=== PATIENT | male | born 1985 | race Caucasian/White ===

== ENCOUNTER 2019-01-04 21:32 | Inpatient (IN) | payer MEDICAID ==
[~2019-01-04] VITALS: Ht 172.7 cm; Wt 103.4 kg
[2019-01-04] MEDS ORDERED: IPRATROPIUM BROMIDE (0.02%) 0.5MG/2.5ML NEB HHN STA (22:16)
[2019-01-04] MEDS ORDERED: ALBUTEROL (0.083%) 2.5MG/3ML NEB HHN STA (22:16)
[2019-01-04] MEDS ORDERED: MORPHINE SULFATE 4 MG/ML CPJ (NOT FOR IM USE) IV STA (22:16)
[2019-01-04] MEDS ORDERED: ONDANSETRON HCL 4MG/2ML INJ IV STA (22:16)
[2019-01-04] MEDS ORDERED: SODIUM CHLORIDE 0.9% 1000ML BAG (SEPSIS BOLUS) IV ONE (22:30)
[2019-01-04] MEDS ORDERED: CEFTRIAXONE 1 G PREMIX 50 ML IV ONE (22:30)
[2019-01-04 22:46] LABS: BG BASE EXCESS -3.3 mmol/L (-2.0-2.0); BG CARBOXYHEMOGLOBIN 0.7 % (0.5-1.5); BG DEOXYHEMOGLOBIN 8.2 % (0.0-5.0); BG FRACTION INSPIRED OXYGEN 21; BG HCO3 ACT 21.2 mmol/L (22.0-26.0); BG METHEMOGLOBIN 0.3 % (0.0-1.5); BG OXYGEN SATURATION 91.7 % (92.0-98.5); BG OXYHEMOGLOBIN 90.8 % (94.0-97.0); BG PCO2 36.6 mmHg (35.0-45.0); BG PO2 59.3 mmHg (75.0-100.0); BG SAMPLE SITE RIGHT RADIAL; BG TOTAL HEMOGLOBIN 16.8 g/dL (12.0-18.0); BG VENT MODE ROOM AIR
[2019-01-04 22:49] LABS: CHLORIDE 105 mEq/L (98-107)
[2019-01-04 22:50] LABS: BASOPHILS % 0.3 % (0.0-2.0); EOSINOPHILS % 7.2 % (0.0-5.0); HEMATOCRIT. 47.9 % (42.0-52.0); HEMOGLOBIN. 16.7 g/dL (14.0-18.0); LYMPHOCYTES % 9.2 % (20.0-50.0); MEAN CORPUSCULAR HEMOGLOBIN 31.4 pg (28.0-32.0); MEAN PLATELET VOLUME 9.7 fl (7.4-10.4); MONOCYTES % 7.4 % (2.0-8.0); NEUTROPHILS % 75.9 % (40.0-76.0); PLATELET 246 x1000/uL (130-400); RED BLOOD CELL COUNT 5.32 mill/uL (4.7-6.1); RED CELL DISTRIBUTION WIDTH 13.2 % (11.6-14.6)
[2019-01-04 22:51] LABS: PROTHROMBIN TIME 10.6 sec (9.6-11.0)
[2019-01-05] VITALS (8 sets, daily range): BP systolic 120–145; BP diastolic 66–91
[2019-01-05] MEDS ORDERED: IOHEXOL-350 100 ML BOTTLE ONE (01:38)
[2019-01-05] MEDS ORDERED: METRONIDAZOLE 500 MG PREMIX 100 ML IV SCH (03:00)
[2019-01-05] MEDS ORDERED: LORAZEPAM 2MG/ML CPJ IV ONE (03:15)
[2019-01-05] MEDS ORDERED: ASPIRIN 325MG TABLET PO ONE (03:15)
[2019-01-05] MEDS ORDERED: METHYLPREDNISOLONE SOD SUCC 125 MG/2 ML VIAL IV ONE (03:45)
[2019-01-05 04:05] LABS: T4 FREE 0.93 ng/dL (0.76-1.46)
[2019-01-05] MEDS ORDERED: ENOXAPARIN 40MG/0.4ML SYR SUBCUT SCH (07:15)
[2019-01-05] MEDS ORDERED: DIPHENHYDRAMINE 50MG/ML VIAL IV PRN (07:15)
[2019-01-05] MEDS ORDERED: ACETAMINOPHEN 650MG SUPP PR PRN (07:15)
[2019-01-05] MEDS ORDERED: NA PHOS,M-B/NA PHOS,DI-BA ENEMA 118ML PR PRN (07:15)
[2019-01-05] MEDS ORDERED: ACETAMINOPHEN 325MG TABLET PO PRN (07:15)
[2019-01-05] MEDS ORDERED: HYDROCODONE/ACETAMINOPHEN 5/325MG TABLET PO PRN (07:15)
[2019-01-05] MEDS ORDERED: MAGNESIUM/ALUMINUM HYDROXIDE/SIMETHICONE 30ML UDC PO PRN (07:15)
[2019-01-05] MEDS ORDERED: IPRATROPIUM/ALBUTEROL 0.5-3(2.5)MG/3ML NEB INH PRN (07:15)
[2019-01-05] MEDS ORDERED: ONDANSETRON HCL 4MG/2ML INJ IV PRN (07:15)
[2019-01-05] MEDS ORDERED: ACETAMINOPHEN 650MG/20.3ML UDC GT PRN (07:15)
[2019-01-05] MEDS ORDERED: MORPHINE SULFATE 2 MG/ML CPJ (NOT FOR IM USE) IV PRN (07:15)
[2019-01-05] MEDS ORDERED: DOCUSATE SODIUM 100MG CAPSULE PO PRN (07:15)
[2019-01-05] MEDS ORDERED: CLONIDINE 0.1MG TABLET PO PRN (07:15)
[2019-01-05] MEDS ORDERED: THIAMINE HCL 100MG TABLET PO SCH (07:30)
[2019-01-05] MEDS ORDERED: FAMOTIDINE 20MG/2ML VIAL IV SCH ×2 (07:30)
[2019-01-05] MEDS: IPRATROPIUM/ALBUTEROL 0.5-3(2.5)MG/3ML NEB INH SCH ×3 (07:56→20:53)
[2019-01-05] MEDS: THIAMINE HCL 100MG TABLET PO SCH (08:46)
[2019-01-05] MEDS: METHYLPREDNISOLONE SOD SUCC 125 MG/2 ML VIAL IV SCH ×3 (08:46→21:14)
[2019-01-05 09:22] LABS: HEMATOCRIT. 48.7 % (42.0-52.0); HEMOGLOBIN. 16.4 g/dL (14.0-18.0); MEAN CORPUSCULAR HEMOGLOBIN 30.7 pg (28.0-32.0); MEAN PLATELET VOLUME 9.9 fl (7.4-10.4); PLATELET 261 x1000/uL (130-400); RED BLOOD CELL COUNT 5.35 mill/uL (4.7-6.1); RED CELL DISTRIBUTION WIDTH 13.3 % (11.6-14.6)
[2019-01-05 09:54] LABS: CHLORIDE 108 mEq/L (98-107)
[2019-01-05 10:01] LABS: ETHANOL BLOOD < 10 mg/dL
[2019-01-05] MEDS: ENOXAPARIN 30MG/0.3ML SYR SUBCUT SCH ×2 (10:40→21:16)
[2019-01-05 10:58] LABS: CLARITY URINE CLEAR (CLEAR); COLOR URINE YELLOW (YELLOW); KETONES URINE NEGATIVE (NEGATIVE); LEUKOCYTE ESTERASE URINE NEGATIVE (NEGATIVE); NITRITE URINE NEGATIVE (NEGATIVE); OCCULT BLOOD URINE NEGATIVE (NEGATIVE); PH URINE 5.5 (4.5-8.0); PROTEIN URINE TRACE (NEGATIVE); SPECIFIC GRAVITY URINE 1.035 (1.005-1.030); UROBILINOGEN URINE 0.2 E.U./dL (0.2-1.0)
[2019-01-05 11:35] LABS: *COCAINE SCREEN URINE NEGATIVE (NEGATIVE)
[2019-01-05 11:36] LABS: METHADONE URINE SCREEN NEGATIVE (NEGATIVE); OPIATES URINE SCREEN PRESUMTIVE POSITIVE (NEGATIVE)
[2019-01-05 11:37] LABS: *AMPHETAMINES SCREEN URINE NEGATIVE (NEGATIVE); *BARBITURATES SCREEN URINE NEGATIVE (NEGATIVE); *BENZODIAZEPINES SCREEN URINE NEGATIVE (NEGATIVE); CANNABINOID URINE SCREEN NEGATIVE (NEGATIVE)
[2019-01-05 12:12] LABS: PHENCYCLIDINE URINE SCREEN NEGATIVE (NEGATIVE)
[2019-01-05] MEDS: SODIUM CHLORIDE 0.9% INJ 3ML FLUSH IVF SCH ×2 (13:36→21:17)
[2019-01-05] MEDS ORDERED: CHLORDIAZEPOXIDE 25MG CAPSULE PO SCH (14:00)
[2019-01-05 14:22] LABS: PLATELET ESTIMATE NORMAL
[2019-01-05] MEDS ORDERED: SODIUM CHLORIDE 10% FOR INH 15ML VIAL NEB INH NR (15:00)
[2019-01-05 15:47] LABS: BG BASE EXCESS -0.4 mmol/L (-2.0-2.0); BG BILEVEL POS AIRWAY PRESSURE 16/5; BG CARBOXYHEMOGLOBIN 0.2 % (0.5-1.5); BG DEOXYHEMOGLOBIN 0.6 % (0.0-5.0); BG FRACTION INSPIRED OXYGEN 60; BG HCO3 ACT 24.6 mmol/L (22.0-26.0); BG METHEMOGLOBIN 0.7 % (0.0-1.5); BG OXYGEN SATURATION 99.4 % (92.0-98.5); BG OXYHEMOGLOBIN 98.5 % (94.0-97.0); BG PCO2 41.7 mmHg (35.0-45.0); BG PH 7.389 (7.350-7.450); BG PO2 228.6 mmHg (75.0-100.0); BG SAMPLE SITE RIGHT RADIAL; BG TOTAL HEMOGLOBIN 16.7 g/dL (12.0-18.0); BG VENT MODE MASK - BIPAP
[2019-01-05] MEDS: LEVOFLOXACIN 500MG PREMIX 100 ML IV SCH (16:27)
[2019-01-05 16:44] LABS: CREATINE KINASE 567 IU/L (39-308)
[2019-01-05 16:45] LABS: CREATINE KINASE MB FRACTION 5.9 ng/mL (0.5-3.6)
[2019-01-05] MEDS: METRONIDAZOLE 500 MG PREMIX 100 ML IV SCH (17:54)
[2019-01-05] MEDS: FAMOTIDINE 20MG/2ML VIAL IV SCH (21:14)
[2019-01-05 23:20] LABS: CREATINE KINASE 413 IU/L (39-308)
[2019-01-05 23:22] LABS: CREATINE KINASE MB FRACTION 4.3 ng/mL (0.5-3.6)
[2019-01-06] VITALS (12 sets, daily range): BP systolic 117–141; BP diastolic 53–78
[2019-01-06] MEDS: METRONIDAZOLE 500 MG PREMIX 100 ML IV SCH ×3 (01:32→16:15)
[2019-01-06] MEDS: METHYLPREDNISOLONE SOD SUCC 125 MG/2 ML VIAL IV SCH ×3 (01:32→13:36)
[2019-01-06] MEDS: ACETYLCYSTEINE 100MG/ML 10% VIAL 4ML INH SCH ×3 (01:36→13:42)
[2019-01-06] MEDS: IPRATROPIUM/ALBUTEROL 0.5-3(2.5)MG/3ML NEB INH SCH ×5 (01:36→21:01)
[2019-01-06] MEDS: SODIUM CHLORIDE 0.9% INJ 3ML FLUSH IVF SCH ×3 (05:54→21:04)
[2019-01-06 06:45] LABS: HEMATOCRIT. 45.7 % (42.0-52.0); HEMOGLOBIN. 15.5 g/dL (14.0-18.0); LYMPHOCYTES % 7.6 % (20.0-50.0); MEAN CORPUSCULAR VOLUME 91.2 fL (80.0-94.0); MEAN PLATELET VOLUME 10.6 fl (7.4-10.4); MONOCYTES % 4.3 % (2.0-8.0); NEUTROPHILS % 88.1 % (40.0-76.0); PLATELET 266 x1000/uL (130-400); RED BLOOD CELL COUNT 5.01 mill/uL (4.7-6.1); RED CELL DISTRIBUTION WIDTH 13.3 % (11.6-14.6)
[2019-01-06 07:05] LABS: CHLORIDE 105 mEq/L (98-107)
[2019-01-06 07:21] LABS: LDL CHOLESTEROL 92 mg/dL (5-100)
[2019-01-06 07:24] LABS: HDL CHOLESTEROL 57 mg/dL (40-59)
[2019-01-06] MEDS: FAMOTIDINE 20MG/2ML VIAL IV SCH ×2 (08:05→21:02)
[2019-01-06] MEDS: THIAMINE HCL 100MG TABLET PO SCH (08:05)
[2019-01-06] MEDS: ENOXAPARIN 30MG/0.3ML SYR SUBCUT SCH ×2 (08:06→21:03)
[2019-01-06] MEDS: GUAIFENESIN 200MG/10ML SUGAR FREE UDC PO PRN (09:26)
[2019-01-06] MEDS: OSELTAMIVIR 75MG CAPSULE PO SCH ×2 (14:58→21:02)
[2019-01-06] MEDS: LEVOFLOXACIN 500MG PREMIX 100 ML IV SCH (15:01)
[2019-01-07] VITALS (12 sets, daily range): BP systolic 116–141; BP diastolic 53–79
[2019-01-07] MEDS: METRONIDAZOLE 500 MG PREMIX 100 ML IV SCH ×3 (00:51→16:59)
[2019-01-07] MEDS: ACETYLCYSTEINE 100MG/ML 10% VIAL 4ML INH SCH ×3 (02:53→20:31)
[2019-01-07] MEDS: IPRATROPIUM/ALBUTEROL 0.5-3(2.5)MG/3ML NEB INH SCH ×4 (02:53→20:30)
[2019-01-07] MEDS: SODIUM CHLORIDE 0.9% INJ 3ML FLUSH IVF SCH ×2 (06:36→13:11)
[2019-01-07] MEDS: THIAMINE HCL 100MG TABLET PO SCH (08:22)
[2019-01-07] MEDS: FAMOTIDINE 20MG/2ML VIAL IV SCH ×2 (08:22→20:51)
[2019-01-07] MEDS: OSELTAMIVIR 75MG CAPSULE PO SCH ×2 (08:22→20:51)
[2019-01-07] MEDS: ENOXAPARIN 30MG/0.3ML SYR SUBCUT SCH ×2 (08:22→20:51)
[2019-01-07] MEDS: METHYLPREDNISOLONE SOD SUCC 40 MG/ML VIAL IV SCH (08:22)
[2019-01-07] MEDS: GUAIFENESIN 200MG/10ML SUGAR FREE UDC PO PRN ×2 (09:31→18:31)
[2019-01-07 10:30] LABS: BASOPHILS % 0.1 % (0.0-2.0); CHLORIDE 102 mEq/L (98-107); HEMATOCRIT. 45.7 % (42.0-52.0); HEMOGLOBIN. 15.4 g/dL (14.0-18.0); LYMPHOCYTES % 18.6 % (20.0-50.0); MEAN CORPUSCULAR HEMOGLOBIN 30.9 pg (28.0-32.0); MEAN CORPUSCULAR VOLUME 91.8 fL (80.0-94.0); MEAN PLATELET VOLUME 10.2 fl (7.4-10.4); MONOCYTES % 8.8 % (2.0-8.0); NEUTROPHILS % 72.5 % (40.0-76.0); PLATELET 251 x1000/uL (130-400); RED BLOOD CELL COUNT 4.98 mill/uL (4.7-6.1); RED CELL DISTRIBUTION WIDTH 13.5 % (11.6-14.6)
[2019-01-07] MEDS ORDERED: ALBU6.7H9 INH (11:09)
[2019-01-07] MEDS ORDERED: AZIT500T2 MT (11:09)
[2019-01-07] MEDS ORDERED: P20 PO (11:09)
[2019-01-07] MEDS: LEVOFLOXACIN 500MG PREMIX 100 ML IV SCH (15:35)
[2019-01-07 18:23] LABS: BG BASE EXCESS 1.3 mmol/L (-2.0-2.0); BG CARBOXYHEMOGLOBIN 0.9 % (0.5-1.5); BG DEOXYHEMOGLOBIN 7.1 % (0.0-5.0); BG FRACTION INSPIRED OXYGEN 21; BG HCO3 ACT 23.9 mmol/L (22.0-26.0); BG METHEMOGLOBIN 0.3 % (0.0-1.5); BG OXYGEN SATURATION 92.8 % (92.0-98.5); BG OXYHEMOGLOBIN 91.7 % (94.0-97.0); BG PCO2 32.5 mmHg (35.0-45.0); BG PH 7.484 (7.350-7.450); BG PO2 57.7 mmHg (75.0-100.0); BG SAMPLE SITE RIGHT RADIAL; BG TOTAL HEMOGLOBIN 16.5 g/dL (12.0-18.0); BG VENT MODE ROOM AIR
[2019-01-08] VITALS (8 sets, daily range): BP systolic 110–133; BP diastolic 48–81
[2019-01-08] MEDS: SODIUM CHLORIDE 0.9% INJ 3ML FLUSH IVF SCH ×2 (01:03→06:09)
[2019-01-08] MEDS: METRONIDAZOLE 500 MG PREMIX 100 ML IV SCH ×2 (01:03→08:10)
[2019-01-08] MEDS: IPRATROPIUM/ALBUTEROL 0.5-3(2.5)MG/3ML NEB INH SCH ×2 (01:25→08:31)
[2019-01-08] MEDS: ENOXAPARIN 30MG/0.3ML SYR SUBCUT SCH (08:13)
[2019-01-08] MEDS: METHYLPREDNISOLONE SOD SUCC 40 MG/ML VIAL IV SCH (08:13)
[2019-01-08] MEDS: OSELTAMIVIR 75MG CAPSULE PO SCH (08:14)
[2019-01-08] MEDS: THIAMINE HCL 100MG TABLET PO SCH (08:14)
[2019-01-08] MEDS: FAMOTIDINE 20MG/2ML VIAL IV SCH (08:14)
[2019-01-08] MEDS: ACETYLCYSTEINE 100MG/ML 10% VIAL 4ML INH SCH (08:30)
== END 2019-01-08 13:40 | disposition home or self-care (01) | DRG 720 ==
LOC: ER 22:04 → 3WST 01-05 03:05 → EDBEDREQ 01-05 03:09 → EDBEDREQTM 01-05 03:09 → ENRESERV 01-05 05:39
PROVIDERS: ADMIT Family Medicine; ATTEND Family Medicine
PROC: 5A09357 Assistance with Respiratory Ventilation, Less than 24 Consecutive Hours, Continuous Positive Airway Pressure (ICD-10-PCS; principal; 2019-01-05)
DX: A41.89 Other specified sepsis (principal); J96.01 Acute respiratory failure with hypoxia; J12.9 Viral pneumonia, unspecified; E66.9 Obesity, unspecified; J45.909 Unspecified asthma, uncomplicated; Z68.35 Body mass index [BMI] 35.0-35.9, adult; F17.200 Nicotine dependence, unspecified, uncomplicated; Z88.0 Allergy status to penicillin; Z79.899 Other long term (current) drug therapy
CPT/HCPCS: 36415; 36600; 71045; 71275; 74176; 76705; 80061; 80305; 80320; 82375; 82550; 82553; 82805; 83605; 83880; 84145; 84439; 84443; 84480; 84484; 87070; 87430; 87804; 93005; 93306; 94640; 94644; 96365; 96366; 96368; 96375; 99291; J0696; J1650; J1956; J2060; J2270; J2405; J2920; J2930; J3490; J7030; J7050; J7131; J7608; J7611; J7620; Q9967; G0480